=== PATIENT | male | born 1980 | race Caucasian/White ===

== ENCOUNTER 2018-12-23 19:10 | Emergency (ER) | payer OTHER | END 2018-12-23 19:45 | disposition home or self-care (01) | LOC: E/R 19:10 | DX: S01.531A Puncture wound without foreign body of lip, initial encounter (principal); S01.511A Laceration without foreign body of lip, initial encounter; J45.909 Unspecified asthma, uncomplicated; W45.8XXA Other foreign body or object entering through skin, initial encounter; Y92.9 Unspecified place or not applicable | CPT/HCPCS: 12011; 99282-25 ==